=== PATIENT | male | born 1945 | race Caucasian/White ===

== ENCOUNTER 2019-03-15 20:10 | Emergency (ER) | payer OTHER, BC, MEDICARE ==
[~2019-03-15] VITALS: Ht 167.6 cm; Wt 74.8 kg
[~2019-03-15 20:10] MED LIST: AMLO5 PO; AMOCLA875 PO; ATEN25; ATEN25 PO; ATOR40TA; BUPR100 PO; BUPR100ER PO; CITA20 PO; Carvedilol6.25 MG PO; DOCU100 PO; FLUT.05NI; LISI20 PO; LORA1 PO; NAPR220 PO; OMEP20ER PO; ROSU10TA PO; SIMV40 PO; Sucralfate1 GM PO; TRAM50 PO
[2019-03-15 20:45] LABS: BASOPHILS ABSOLUTE AUTO 0.05 K/mm3 (0.00-0.23); BASOPHILS PERCENT AUTO 1 % (0-2); EOSINOPHILS ABSOLUTE AUTO 0.13 K/mm3 (0.00-0.68); EOSINOPHILS PERCENT AUTO 2 % (0-6); Hematocrit 41.3 % (37.0-53.0); Hemoglobin 13.5 g/dL (13.5-17.5); IMMATURE GRAN ABSOLUTE AUTO 0.01 K/mm3 (0.00-0.10); IMMATURE GRAN PERCENT AUTO 0 % (0-1); LYMPHOCYTES ABSOLUTE AUTO 1.69 K/mm3 (0.84-5.20); LYMPHOCYTES PERCENT AUTO 24 % (21-46); MONOCYTES ABSOLUTE AUTO 0.51 K/mm3 (0.16-1.47); MONOCYTES PERCENT AUTO 7 % (4-13); Mean Corpuscular HGB 28.4 pg (26.0-34.0); Mean Corpuscular HGB Conc 32.7 g/dL (31.5-36.5); Mean Corpuscular Volume 87 fL (80-100); Mean Platelet Volume 9.7 fL (9.1-12.4); NEUTROPHILS ABSOLUTE AUTO 4.69 K/mm3 (1.96-9.15); NEUTROPHILS PERCENT AUTO 66 % (41-73); Platelet Count 244 K/mm3 (150-400); RDW Coefficient Variation 12.7 % (11.7-14.2); RDW Standard Deviation 40.8 fL (35.1-46.3); Red Blood Cell Count 4.75 M/mm3 (4.30-5.90); White Blood Cell Count 7.08 K/mm3 (4.00-11.30)
[2019-03-15 21:07] LABS: Alanine Aminotransfer (ALT/SGP 20 U/L (12-78); Albumin, Blood 4.1 g/dL (3.4-5.0); Albumin/Globulin Ratio 1.2 (0.8-1.8); Alk Phos 107 U/L (50-136); Anion Gap 5 mmol/L (6-16); Aspartate Aminotrans (AST/SGOT 14 U/L (12-37); Bilirubin, Total 0.5 mg/dL (0.1-1.0); Blood Urea Nitrogen 16 mg/dL (8-24); Bun/Creatinine Ratio 14.2 (12.0-20.0); CO2, Blood 29 mmol/L (21-32); Chloride, Blood 108 mmol/L (98-108); Creatinine, Blood 1.13 mg/dL (0.60-1.20); Globulin, Blood 3.3 g/dL (2.2-4.0); Glomerular Filtration Rate >60 (60-); Glucose, Blood 98 mg/dL (70-99); Potassium, Blood 3.5 mmol/L (3.5-5.5); Sodium, Blood 142 mmol/L (136-145); Total Protein, Blood 7.4 g/dL (6.4-8.2); Troponin I <0.015 ng/mL (0.000-0.040)
== END 2019-03-15 22:16 | disposition home or self-care (01) ==
LOC: ER 20:10
PROVIDERS: Physician Assistant
DX: R07.9 Chest pain, unspecified (principal); I10 Essential (primary) hypertension; F32.9 Major depressive disorder, single episode, unspecified; K21.9 Gastro-esophageal reflux disease without esophagitis; Z91.09 Other allergy status, other than to drugs and biological substances; Z79.899 Other long term (current) drug therapy
CPT/HCPCS: 36415; 71046; 80053; 84484; 85025; 93005; 93010; 99285-25

== ENCOUNTER → 2019-06-13 | Outpatient (CLI) | payer MEDICARE, BC | END | disposition home or self-care (01) | LOC: PLD 09:22 → LAB SHORT 09:22 | DX: D48.5 Neoplasm of uncertain behavior of skin (principal) | CPT/HCPCS: 88305 ==

== ENCOUNTER 2022-09-16 22:25 | Observation (INO) | payer OTHER, BC ==
[~2022-09-16] VITALS: Ht 167.6 cm; Wt 66.8 kg
[2022-09-16 23:04] LABS: BASOPHILS ABSOLUTE AUTO 0.05 K/mm3 (0.00-0.23); BASOPHILS PERCENT AUTO 1 % (0-2); EOSINOPHILS ABSOLUTE AUTO 0.16 K/mm3 (0.00-0.68); EOSINOPHILS PERCENT AUTO 2 % (0-6); Hematocrit 39.2 % (37.0-53.0); Hemoglobin 13.1 g/dL (13.5-17.5); IMMATURE GRAN ABSOLUTE AUTO 0.01 K/mm3 (0.00-0.10); IMMATURE GRAN PERCENT AUTO 0 % (0-1); LYMPHOCYTES PERCENT AUTO 33 % (21-46); MONOCYTES ABSOLUTE AUTO 0.61 K/mm3 (0.16-1.47); MONOCYTES PERCENT AUTO 7 % (4-13); Mean Corpuscular HGB 28.3 pg (26.0-34.0); Mean Corpuscular HGB Conc 33.4 g/dL (31.5-36.5); Mean Corpuscular Volume 85 fL (80-100); Mean Platelet Volume 9.7 fL (9.1-12.4); NEUTROPHILS ABSOLUTE AUTO 5.03 K/mm3 (1.96-9.15); NEUTROPHILS PERCENT AUTO 57 % (41-73); Platelet Count 267 K/mm3 (150-400); RDW Coefficient Variation 13.7 % (11.7-14.2); RDW Standard Deviation 42.1 fL (35.1-46.3); Red Blood Cell Count 4.63 M/mm3 (4.30-5.90); White Blood Cell Count 8.76 K/mm3 (4.00-11.30)
[2022-09-16] MEDS ORDERED: LISI20 PO (23:04)
[2022-09-16] MEDS ORDERED: AMLO10 PO (23:04)
[2022-09-16] MEDS ORDERED: ASPI81CH (23:04)
[2022-09-16 23:24] LABS: Albumin, Blood 4.1 g/dL (3.4-5.0); Albumin/Globulin Ratio 1.2 (0.8-1.8); Bilirubin, Total 0.4 mg/dL (0.1-1.0); Bun/Creatinine Ratio 12.6 (12.0-20.0); Calcium, Blood 8.7 mg/dL (8.5-10.1); Creatinine, Blood 1.19 mg/dL (0.60-1.20); Globulin, Blood 3.4 g/dL (2.2-4.0); Potassium, Blood 3.7 mmol/L (3.5-5.5); Total Protein, Blood 7.5 g/dL (6.4-8.2)
[2022-09-17 02:15] VITALS: BP 123/77
[2022-09-17 05:05] LABS: BASOPHILS ABSOLUTE AUTO 0.03 K/mm3 (0.00-0.23); BASOPHILS PERCENT AUTO 0 % (0-2); EOSINOPHILS ABSOLUTE AUTO 0.03 K/mm3 (0.00-0.68); EOSINOPHILS PERCENT AUTO 0 % (0-6); Hematocrit 36.7 % (37.0-53.0); Hemoglobin 12.3 g/dL (13.5-17.5); IMMATURE GRAN ABSOLUTE AUTO 0.02 K/mm3 (0.00-0.10); IMMATURE GRAN PERCENT AUTO 0 % (0-1); LYMPHOCYTES PERCENT AUTO 19 % (21-46); MONOCYTES ABSOLUTE AUTO 0.24 K/mm3 (0.16-1.47); MONOCYTES PERCENT AUTO 3 % (4-13); Mean Corpuscular HGB Conc 33.5 g/dL (31.5-36.5); Mean Corpuscular Volume 84 fL (80-100); Mean Platelet Volume 9.9 fL (9.1-12.4); NEUTROPHILS ABSOLUTE AUTO 5.62 K/mm3 (1.96-9.15); NEUTROPHILS PERCENT AUTO 77 % (41-73); Platelet Count 256 K/mm3 (150-400); RDW Coefficient Variation 13.7 % (11.7-14.2); RDW Standard Deviation 41.7 fL (35.1-46.3); Red Blood Cell Count 4.39 M/mm3 (4.30-5.90); White Blood Cell Count 7.34 K/mm3 (4.00-11.30)
[2022-09-17 06:23] LABS: Albumin/Globulin Ratio 1.2 (0.8-1.8); Bilirubin, Total 0.4 mg/dL (0.1-1.0); Bun/Creatinine Ratio 12.1 (12.0-20.0); Creatinine, Blood 0.99 mg/dL (0.60-1.20); Globulin, Blood 3.3 g/dL (2.2-4.0); Potassium, Blood 3.8 mmol/L (3.5-5.5); Total Protein, Blood 7.3 g/dL (6.4-8.2)
--- NOTE | 2022-09-17 06:41 | NUR ---
REPORT FROM ED RN DARREN, PT BROUGHT UP VIA [employer], PT HAS TOWEL ACROSS EYES D/T SEVERE VERTIGO- TRANSFERRED PT TO [facility], ASSESSMENT DONE- PT REPORTS SELF CATHS DONE 3-4 DAY, PT REPORTS KNOWING WHEN TO SELF CATH- CALL TO AND GOT ORDER TO CATH- PT REPORTS USING A SILICONE 14 F CAUDI- UNABLE TO CATH PT WITH OUR SUPPLIED, BLADDER SCAN YIELDED 1549- PT CALLED SON TIM TO BRING SUPPLY FROM HOME, PT ABLE TO CATH SELF AND 1650 CLEAR YELLOW URINE DRAINED, PT REPORTED VERTIGO SLIGHTLY BETTER AND PT REPORTED NO NAUSEA WHEN RESTING WITH EYES SHUT- GAVE PT EYE MASK, NS INFUSING AT 75ML/HR BED LOW POSITION, CALL LIGHT WITHIN REACH
[2022-09-17 07:50] VITALS: BP 130/71
--- NOTE | 2022-09-17 08:00 | NUR ---
pt laying in bed watching tv, a/ox4, pleasant and cooperative with care, follows commands well, denies pain, states the dizziness is much better, very little while lying still, reji, oswaldo =, dpfe =, encouraged him to call staff for assist anytime he wants to get oob, he is agreeable and able to make his needs known, lungs are clear t/o, a bit dim in bases, resp even and unlabore,d no cough noted, on r/a, hrr, tele in place running sr per monitor, see strip no edema noted, ppp+2, cap refill <3 sec, vs stable, afebrile, iv sites are clear and patent, infusing ns at 75mls/hr, btx4, abd flat soft nontender, voids via self cath, he reports the last time was early this am, and usually does it tid, he has supplies in room, skin c/w/d, reji ceron, call light in reach.
--- NOTE | 2022-09-17 12:29 | NUR ---
[facility] transport called to give ativan to pt as they are on the way to take him down, 0.5mg ativan given for anxiety, family in room, left via gurney.
[2022-09-17 15:12] VITALS: BP 122/75
[2022-09-17 16:25] LABS: Source, Urine Straight Cath
[2022-09-17 16:30] LABS: Appearance, Urine Clear (Clear); Bilirubin, Urine Neg (Neg); Blood, Urine Neg (Neg); Glucose Qualitative, Urine Neg (Neg); Ketones, Urine Neg (Neg); Leukocyte Esterase, Urine 2+ (Neg); Nitrite, Urine Neg (Neg); Protein, Urine Neg (Neg); Urobilinogen, Urine NORM (Normal)
[2022-09-17 16:39] LABS: Color, Urine Pale Yellow (P-Yellow)
[2022-09-17 16:40] LABS: Bacteria Many /hpf; Red Blood Cells, Urine Not Seen /hpf (0-2); Squamous Epithelial Cells Not Seen /hpf (Few)
--- NOTE | 2022-09-17 18:22 | NUR ---
pt got up and cathed himself once today, sent a u/a to lab, son has been in to visit, pt states he still feels whoozy, no further changes this shift. call light in reach.
--- NOTE | 2022-09-17 18:38 | NUR ---
pt cathed himself three times today, which is what he does at home, but did not measure, asked him to measure in a urinal, call light in reach.
[2022-09-17 19:30] VITALS: BP 131/67
[2022-09-18 03:01] VITALS: BP 138/75
--- NOTE | 2022-09-18 06:14 | NUR ---
PT SITTING UP IN BED DURING BEDSIDE REPORT, PT REPORTS VERTIGO BETTER - PT DENIES NAUSEA, PT REFUSED TO SELF CATH UNTIL 99- PT REPORTS HE HAS A LARGE BLADDER AND D/T SCAR TISSUE FROM PROSTATE REMOVAL HE ONLY CATHS 3-4 TIMES A DAY- PT REPORTED HAVING A UTI BEFORE ADMISSION- PT REPORTED TAKING ONE OF HIS DOXYCYCLINE BEFORE COMING TO HOSPITAL, PT REPORTS HAVING SEVERE ALLERGIES TO OTHER ABX - PT UNABLE TO REMEMBER WHAT ABX THAT HAS CAUSED SEVERE VOMITTNG AND OR HIVES- WILL PASS ON TO DAYSHIFT RN- BED LOW POSITION, CALL LIGHT WITHIN REACH
[2022-09-18 07:38] VITALS: BP 132/76
[2022-09-18 10:56] VITALS: BP 150/77
[2022-09-18 11:00] VITALS: BP 151/79
[2022-09-18 11:02] VITALS: BP 139/90
[2022-09-18] MEDS ORDERED: MECL25 PO (12:37)
[2022-09-18] MEDS ORDERED: AMOCLA875 PO (12:37)
--- NOTE | 2022-09-18 13:44 | NUR ---
DISCHARGE SUMMARY PATIENT IS ALERT AND ORIENTED. PATIENT HAS HAD NO ACUTE EVENTS THIS SHIFT. VITAL SIGNS REVIEWED. PATIENT HAS HAD NO SYMPTOMS OF VERTIGO, DIZZINESS. PATIENT HAS HAD NO COMPLAINTS OF PAIN, NAUSEA, SOB OR VOMITTING. PATIENTS SON IS TRANSPORTING PATIENT HOME. MEDICATIONS FAXED TO [facility].
== END 2022-09-18 13:39 | disposition home or self-care (01) ==
LOC: ER 22:25 → MEDS 22:26
PROVIDERS: Emergency Medicine; Family Medicine; Internal Medicine; ADMIT Internal Medicine
DX: R42 Dizziness and giddiness (principal); R11.2 Nausea with vomiting, unspecified; I10 Essential (primary) hypertension; E78.5 Hyperlipidemia, unspecified; K21.9 Gastro-esophageal reflux disease without esophagitis; I48.91 Unspecified atrial fibrillation; Z95.1 Presence of aortocoronary bypass graft; Z87.891 Personal history of nicotine dependence; Z95.5 Presence of coronary angioplasty implant and graft; Z88.8 Allergy status to other drugs, medicaments and biological substances; Z79.899 Other long term (current) drug therapy
CPT/HCPCS: 36415; 70450; 70551; 80053; 81001; 84484; 85025; 87077; 87086; 87186; 96374; 96375; 97161; 99285-25; A9270; J0696; J1790; J2060; J2405; J3360; J7030

== ENCOUNTER 2024-05-24 06:28 | Day surgery (SDC) | payer OTHER ==
[~2024-05-24] VITALS: Ht 167.6 cm; Wt 67.3 kg
[~2024-05-24 06:28] MED LIST changes: +AMLO10 PO; +ASPI81CH; +MECL25 PO; +Povidone-Iodine 450 DROP/30 ML Solution ONE; +Tetracaine HCl/Pf 0.5% Opth Soln 4 ml ONE
[2024-05-24] MEDS ORDERED: Diazepam 2 MG Tab ONE ×2 (06:45→07:43)
[2024-05-24] MEDS ORDERED: Diazepam 5 MG Tab ONE (06:46)
[2024-05-24] MEDS ORDERED: Triamcinolone Inj Susp 40 MG / ML 1ML Vial ONE (06:55)
[2024-05-24] MEDS ORDERED: Lidocaine HCl/Pf 1% 5 ML VIAL ONE (06:55)
--- NOTE | 2024-05-24 07:08 | NUR ---
05/24/24 0708 Lori Quiroz PT STATES HE WAS TOLD THAT HE HAS AN ALLERGY TO IODINATED CONTRAST MEDIA BUT IS NOT SURE OF THE REACTION. STATES HE HAS HAD BETADINE ON HIS SKIN BEFORE FOR SURGERIES WITHOUT ANY PROBLEMS.
[2024-05-24] MEDS ORDERED: PANT40 (07:22)
[2024-05-24] MEDS ORDERED: ERGO400 (07:22)
[2024-05-24] MEDS ORDERED: FAMO20 PO (07:23)
[2024-05-24] MEDS ORDERED: Clopidogrel Bis75 MG PO (07:23)
[2024-05-24] MEDS ORDERED: ATORVASTATIN CA80 M1 (07:23)
[2024-05-24] MEDS ORDERED: [UNRECOGNIZED DRUG - OTHER] (07:24)
[2024-05-24] MEDS ORDERED: MULTIVITAMIN (07:24)
[2024-05-24] MEDS ORDERED: Ondansetron 4 MG SoluTab MM PRN (07:50)
--- NOTE | 2024-05-24 08:07 | NUR ---
05/24/24 0807 Jazmín Betancourt BP-134/74 P-63 SPO2 96% 10L BLOW BY O2
--- NOTE | 2024-05-24 08:20 | NUR ---
05/24/24 0820 Daya Ramirez PT TO STEPDOWN, PATIENT STATES HE IS "TENSE". HEAD OF BED RAISED. STATES EYE "PALACIOS A LITTLE".
[2024-05-24 08:21] VITALS: BP 132/75
[2024-05-25] MEDS ORDERED: Moxifloxacin HCL 0.5 MG/0.1 ML 0.4MLSYR RIGHTEYE SCH (06:00)
[2024-05-25] MEDS ORDERED: Diazepam 2 MG Tab PO PRN (06:00)
[2024-05-25] MEDS ORDERED: diazePAM 2 MG,diazePAM 5 MG PO SCH (06:00)
[2024-05-25] MEDS ORDERED: Balanced Salt Epinephrine Irrigation Solution 500 mL IR SCH (06:00)
[2024-05-25] MEDS ORDERED: Lidocaine HCl/Pf 1% 5 ML VIAL XX SCH (06:00)
[2024-05-25] MEDS ORDERED: PHENYLEPHRINE\\TROPICAMIDE\\TETRACAINE OPHTHALMIC DILATING SOLN RIGHTEYE PRN (06:00)
[2024-05-25] MEDS ORDERED: Triamcinolone Inj Susp 40 MG / ML 1ML Vial INJ SCH (06:00)
[2024-05-25] MEDS ORDERED: Povidone-Iodine 450 DROP/30 ML Solution RIGHTEYE SCH (06:00)
[2024-05-31] MEDS ORDERED: PHENYLEPHRINE\\TROPICAMIDE\\TETRACAINE OPHTHALMIC DILATING SOLN LEFTEYE PRN (06:00)
[2024-05-31] MEDS ORDERED: Balanced Salt Epinephrine Irrigation Solution 500 mL IR SCH (06:00)
[2024-05-31] MEDS ORDERED: Triamcinolone Inj Susp 40 MG / ML 1ML Vial INJ SCH (06:00)
[2024-05-31] MEDS ORDERED: Moxifloxacin HCL 0.5 MG/0.1 ML 0.4MLSYR LEFTEYE SCH (06:00)
[2024-05-31] MEDS ORDERED: Povidone-Iodine 450 DROP/30 ML Solution LEFTEYE SCH (06:00)
[2024-05-31] MEDS ORDERED: Lidocaine HCl/Pf 1% 5 ML VIAL XX SCH (06:00)
== END 2024-05-24 08:40 | disposition home or self-care (01) ==
LOC: ORSCSDS 06:28
PROVIDERS: Ophthalmology
PROC: 08RJ3JZ Replacement of Right Lens with Synthetic Substitute, Percutaneous Approach (ICD-10-PCS; principal; 2024-05-24 08:00)
DX: H25.813 Combined forms of age-related cataract, bilateral (principal); I10 Essential (primary) hypertension; I25.10 Atherosclerotic heart disease of native coronary artery without angina pectoris; H52.201 Unspecified astigmatism, right eye; Z79.82 Long term (current) use of aspirin; Z79.02 Long term (current) use of antithrombotics/antiplatelets; Z87.891 Personal history of nicotine dependence; Z79.899 Other long term (current) drug therapy
CPT/HCPCS: A9270; J2003; J3301; V2632

== ENCOUNTER 2024-05-31 10:12 | Day surgery (SDC) | payer OTHER ==
[~2024-05-31] VITALS: Ht 167.6 cm; Wt 67.3 kg
[~2024-05-31 10:12] MED LIST changes: +ATORVASTATIN CA80 M1; +Clopidogrel Bis75 MG PO; +ERGO400; +FAMO20 PO; +MULTIVITAMIN; +NS 500 ML IV ONE; +PANT40; +Triamcinolone Inj Susp 40 MG / ML 1ML Vial ONE; +[UNRECOGNIZED DRUG - OTHER]
[2024-05-31] MEDS ORDERED: NS 500 ML IV ONE (11:15)
--- NOTE | 2024-05-31 11:32 | NUR ---
05/31/24 1132 Ileana Ferraro TETRAVANI: [id number] JEAN CLAUDE: [id number]
[2024-05-31] MEDS ORDERED: Midazolam HCl 1MG / ML 2ML Vial ONE (12:11)
[2024-05-31] MEDS ORDERED: Moxifloxacin HCL 0.5 MG/0.1 ML 0.4MLSYR XX ONE (12:16)
[2024-05-31] MEDS ORDERED: Lidocaine HCl 1% 5 ML SYR XX ONE (12:16)
[2024-05-31] MEDS ORDERED: BSS PLUS/EPINEPHRINE IRRIGATION SOLUTION 500 ML IR ONE (12:16)
--- NOTE | 2024-05-31 12:41 | NUR ---
05/31/24 1241 Daya Ramirez SON BROUGHT TO BEDSIDE
[2024-05-31 12:55] VITALS: BP 126/71
== END 2024-05-31 12:54 | disposition home or self-care (01) ==
LOC: ORSCSDS 10:12
PROVIDERS: Ophthalmology
PROC: 08RK3JZ Replacement of Left Lens with Synthetic Substitute, Percutaneous Approach (ICD-10-PCS; principal; 2024-05-31 12:00)
DX: H25.812 Combined forms of age-related cataract, left eye (principal); Z96.1 Presence of intraocular lens; H52.202 Unspecified astigmatism, left eye; I10 Essential (primary) hypertension; I25.10 Atherosclerotic heart disease of native coronary artery without angina pectoris; K21.9 Gastro-esophageal reflux disease without esophagitis; Z87.891 Personal history of nicotine dependence; Z79.899 Other long term (current) drug therapy
CPT/HCPCS: J2250; J3301; J7040; V2632

== ENCOUNTER → 2024-12-12 | Outpatient (CLI) | payer OTHER ==
[~2024-12-12] MED LIST changes: -NS 500 ML IV ONE; -Povidone-Iodine 450 DROP/30 ML Solution ONE; -Tetracaine HCl/Pf 0.5% Opth Soln 4 ml ONE; -Triamcinolone Inj Susp 40 MG / ML 1ML Vial ONE
== END | disposition home or self-care (01) ==
LOC: LAB SHORT 17:26 → LAB 17:26
DX: R31.29 Other microscopic hematuria (principal)
CPT/HCPCS: 88108